=== PATIENT | female | born 1990 | race Caucasian/White ===

== ENCOUNTER 2018-05-30 05:37 | Day surgery (SDC) | payer OTHER ==
[2018-05-30] MEDS ORDERED: FENTAnyl 50 MCG/ML VIAL (08:10)
[2018-05-30] MEDS ORDERED: ROPIVACAINE 0.5 % 30 ML VIAL (08:10)
[2018-05-30] MEDS ORDERED: SUGAMMADEX SODIUM 200 MG/2 ML VIAL IV (08:28)
[2018-05-30] MEDS ORDERED: CEFAZOLIN 1 GM INJ (08:28)
[2018-05-30] MEDS ORDERED: SUCCINYLCHOLINE CHLORIDE 100 MG/5 ML SYG IV (08:28)
[2018-05-30] MEDS ORDERED: ROCURONIUM 50 MG INJ (08:28)
[2018-05-30] MEDS ORDERED: PROPOFOL 20 ML (08:28)
[2018-05-30] MEDS ORDERED: LIDOCAINE 100 MG SYRINGE (08:28)
[2018-05-30] MEDS ORDERED: MEPERIDINE 25 MG INJ IV (09:00)
[2018-05-30] MEDS ORDERED: FENTAnyl 50 MCG/ML VIAL IV ×2 (09:00)
[2018-05-30] MEDS ORDERED: HYDROmorphONE 1 MG/5 ML IV SYRINGE IV (09:00)
[2018-05-30] MEDS: BUPIVACAINE 0.5%/EPI (SDV) 30 ML INJ (09:41)
[2018-05-30] MEDS: HYDROmorphONE 1 MG/5 ML IV SYRINGE IV ×2 (09:49→09:54)
[2018-05-30] MEDS: FENTAnyl 50 MCG/ML VIAL IV ×2 (10:00→10:22)
[2018-05-30] MEDS ORDERED: ONDANSETRON 4 MG INJ IV (10:00)
[2018-05-30] MEDS: ONDANSETRON 4 MG INJ IV (10:29)
[2018-05-30] MEDS: DIPHENHYDRAMINE 50 MG INJ IV (10:48)
[2018-05-30] MEDS: METOCLOPRAMIDE 10 MG INJ IV (12:24)
[2018-05-30] MEDS: ACETAMINOPHEN 1000MG/100ML IV 100 ML IVPB (14:53)
[2018-05-30] MEDS: OXYCODONE/ACETAMINOPHEN (5/325) TAB PO ×2 (18:03→22:01)
[2018-05-31] MEDS: OXYCODONE/ACETAMINOPHEN (5/325) TAB PO (09:24)
== END 2018-05-31 17:00 | disposition home or self-care (01) ==
LOC: SDS 05:37 → REC 13:46 → SDS 09:44 → MS1 13:46 → SDS 05-31 17:00
DX: Z30.2 Encounter for sterilization (principal)
CPT/HCPCS: 58600; 88302